=== PATIENT | male | born 1965 | race Caucasian/White ===

== ENCOUNTER 2021-08-18 10:49 | Day surgery (SDC) | payer MEDICARE, OTHER ==
[2021-08-17 09:39] VITALS: BMI 23.3
[~2021-08-18 10:49] MED LIST: LACTATED RINGERS 1,000 ML IV SCH
[2021-08-18 11:52] VITALS: TEMP 97
[2021-08-18 12:02] LABS: Glucose,Whole Blood 106 mg/dL (75-99)
[2021-08-18] MEDS ORDERED: LIDOCAINE 1% INJ 10MG/ML (20 ML MDV) ONE (12:38)
[2021-08-18] MEDS ORDERED: PROPOFOL 10 MG/ML 20 ML VIAL IV ONE (12:38)
--- NOTE | 2021-08-18 12:55 | P.PCN ---
Date of Procedure: 08/18/21 Procedure(s) Performed: BRIEF HISTORY: Patient is a 56-year-old, pleasant, white male with history of GERD the, currently residing able to move is being evaluated for nausea vomiting and dysphagia for the last few months duration. Recent modified barium swallow as well as. Esophagogram was normal. He is scheduled for an upper endoscopy to evaluate PROCEDURE PERFORMED: Esophagogastroduodenoscopy with biopsy. PREOPERATIVE DIAGNOSIS: Dysphagia and intermittent nausea vomiting of several months duration. IV sedation per anesthesia. PROCEDURE: After informed consent was obtained, the patient was brought into the endoscopy unit. IV sedation was administered by Anesthesia under continuous monitoring. Initially the Olympus GIF-140 video endoscope was inserted into the mouth. Esophagus intubated with moderate to severe difficulty. It was gradually advanced into the stomach and duodenum and carefully examined. The bulb and the second part of the duodenum appeared normal. The scope at this time was withdrawn to the stomach, adequately insufflated with air, and upon careful examination, mucosa of the antrum, body, cardia and the fundus appeared normal. The scope was then withdrawn into the esophagus. The GE junction was located at 39 cm from the incisors. The esophagus appeared normal. There were no erosions or ulcerations seen . The proximal cervical esophagus was carefully examined and appeared normal. However there was some hesitation to the passage of the scope upper esophageal sphincter suspicious for cricopharyngeal dysfunction. Biopsies were done from the mid and distal esophagus to rule out eosinophilic esophagitis and the patient tolerated the procedure well. IMPRESSION: 1. Hesitation to the passage of the scope and esophagus at the cricopharyngeal area suspicious for cricopharyngeal dysfunction. 2. No evidence of esophagitis or esophageal stricture. RECOMMENDATIONS: The findings of this examination were discussed with the patient well as his family. He was advised to follow with the biopsy results. Continue with soft diet. Follow with the ENT for cricopharyngeal dysfunction
[2021-08-18 13:01] VITALS: RESP 18
[2021-08-18 13:19] VITALS: BP 174/108; PULSE 71
== END 2021-08-18 14:01 | disposition home or self-care (01) ==
LOC: EEVIPCON 10:49 → ORWHC2ENDO 10:49
PROVIDERS: ATTEND Internal Medicine Gastroenterology
DX: K21.9 Gastro-esophageal reflux disease without esophagitis (principal); R13.10 Dysphagia, unspecified; Z79.899 Other long term (current) drug therapy; I10 Essential (primary) hypertension; E11.9 Type 2 diabetes mellitus without complications; E07.9 Disorder of thyroid, unspecified; F84.0 Autistic disorder; Z79.84 Long term (current) use of oral hypoglycemic drugs; Z79.82 Long term (current) use of aspirin
CPT/HCPCS: 88305; 43239; J2001; J2704

== ENCOUNTER 2022-01-05 06:23 | Day surgery (SDC) | payer MEDICARE, OTHER ==
[2022-01-05 07:06] LABS: Glucose,Whole Blood 117 mg/dL (70-110)
[2022-01-05] MEDS: LACTATED RINGERS 1,000 ML IV SCH ×2 (07:11→07:22)
[2022-01-05 07:16] VITALS: TEMP 97.6
[2022-01-05] MEDS ORDERED: PROPOFOL 10 MG/ML 20 ML VIAL IV ONE (07:23)
--- NOTE | 2022-01-05 07:48 | P.PCN ---
Date of Procedure: 01/05/22 Procedure(s) Performed: BRIEF HISTORY: Patient is a 56-year-old pleasant white male with history of severe autism scheduled for an elective colonoscopy as a part of screening for colon rectal neoplasia. PROCEDURE PERFORMED: Colonoscopy. PREOPERATIVE DIAGNOSIS: Screening for colon cancer. IV sedation per Anesthesia. PROCEDURE: After informed consent was obtained, the patient, was brought into the endoscopy unit. IV sedation was administered by Anesthesia under continuous monitoring. Digital rectal examination was normal. Initially the Olympus CF-160 flexible video colonoscope was then inserted in the rectum, gradually advanced into the cecum without any difficulty. Careful examination was performed as the scope was gradually being withdrawn. Ileocecal valve and the appendiceal orifice were visualized and appeared normal. Prep was excellent. Mucosa of the cecum, ascending colon, transverse colon, descending colon, sigmoid colon, and rectum appeared normal. Retroflexion was performed in the rectum and no lesions were seen. The patient tolerated the procedure well. IMPRESSION: Normal-appearing colon from rectum to cecum with no evidence of colorectal neoplasia . RECOMMENDATIONS: Findings of this examination were discussed with the patient as well as his caregiver. He was advised to have a repeat screening colonoscopy in 10 years..
[2022-01-05 08:15] VITALS: BP 144/85; PULSE 56; RESP 20
== END 2022-01-05 08:19 | disposition home or self-care (01) ==
LOC: ORWHC2ENDO 06:23
PROVIDERS: ATTEND Internal Medicine Gastroenterology
DX: Z12.11 Encounter for screening for malignant neoplasm of colon (principal); F84.0 Autistic disorder; I10 Essential (primary) hypertension; E78.5 Hyperlipidemia, unspecified; E07.9 Disorder of thyroid, unspecified; Z79.890 Hormone replacement therapy; Z79.899 Other long term (current) drug therapy; Z79.84 Long term (current) use of oral hypoglycemic drugs; Z80.9 Family history of malignant neoplasm, unspecified; Z83.3 Family history of diabetes mellitus; Z82.49 Family history of ischemic heart disease and other diseases of the circulatory system
CPT/HCPCS: J2704; G0121